=== PATIENT | female | born 2005 | race Caucasian/White ===

== ENCOUNTER 2025-02-08 14:18 | Outpatient (REF) | payer OTHER, SELFPAY ==
[2025-02-08 17:44] LABS: MANUAL DIFF FLAG NO
[2025-02-08 18:10] LABS: Alanine Aminotransferase 19 U/L (0-31); Albumin Level 4.6 g/dL (3.5-5.0); Alkaline Phosphatase 64 U/L (39-117); Anion Gap 12 (12-20); Aspartate Amino Transferase 29 U/L (5-31); Blood Urea Nitrogen 6 mg/dL (9-16); Calcium 9.2 mg/dL (8.4-10.2); Carbon Dioxide 26 mmol/L (22-29); Chloride 106 mmol/L (96-108); Cholesterol 177 mg/dL (<200); Estimated Glomerular Filt Rate > 60; HDL Cholesterol 59 mg/dL (>40); Iron 27 mcg/dL (30-160); Percent Iron Saturation 7 % (15-50); Potassium 3.8 mmol/L (3.3-5.1); Sodium 140 mmol/L (135-145); Total Iron Binding Capacity 382 mcg/dL (228-428); Total Protein 7.8 g/dL (6.5-8.0); Triglycerides 69 mg/dL (<150); Unsaturated Iron Binding 355 ug/dL
[2025-02-08 18:13] LABS: Hematocrit 38.4 % (37.0-47.0); Hemoglobin 11.3 g/dl (12.0-16.0); Imm Gran Abs Auto 0.02 X10*3/uL (0.00-0.03); Imm Gran Pct Auto 0.3 % (0.0-0.4); Lymphocytes Absolute Auto 1.4 X10*3/uL (1.2-4.9); Mean Corpuscular HGB Conc 29.4 g/dl (31.0-35.0); Mean Corpuscular Hemoglobin 22.1 pg (27.0-33.0); Mean Corpuscular Volume 75.1 fL (80.0-98.0); NRBC Abs Auto 0.000 X10*3/uL (0.0-0.012); NRBC Pct Auto 0.0 /100WBC (0.0-0.2); Platelet Count 470 X10*3/uL (160-400); Red Blood Count 5.11 X10*6/uL (4.20-5.50); White Blood Count 6.9 X10*3/uL (4.8-10.8)
[2025-02-08 18:26] LABS: Ferritin 6 ng/mL (10-122)
[2025-02-08 18:37] LABS: Folate 9.5 ng/mL (> or = 4.0); Vitamin B12 398 pg/mL (200-900)
== END 2025-02-08 14:19 | disposition home or self-care (01) ==
LOC: HO.WFDLDS 14:18
PROVIDERS: Visit Provider Internal Medicine
DX: Z00.00 Encounter for general adult medical examination without abnormal findings (principal); R35.89 Other polyuria; R53.83 Other fatigue; Z11.3 Encounter for screening for infections with a predominantly sexual mode of transmission; Z13.220 Encounter for screening for lipoid disorders; Z76.89 Persons encountering health services in other specified circumstances; Z86.2 Personal history of diseases of the blood and blood-forming organs and certain disorders involving the immune mechanism
CPT/HCPCS: 36415; 80053; 80061; 82607; 82728; 82746; 83036; 83540; 84443; 85025; 96127; 99385

== ENCOUNTER 2025-02-08 14:18 | Outpatient (AMB) | payer OTHER, SELFPAY ==
--- NOTE | 2025-02-08 14:20 | A.OFFPC_ITS ---
Vital Signs 02/08/25 14:25 Height 5 ft 8 in Weight 182 lb 6 oz BMI 27.7 BP 132/63 Blood Pressure Location Lt brachial Position Sitting Respiration 16 Pulse 90 Pulse Source Pulse Oximeter Temp 98.4 F Temp Source Oral Pulse Oximetry (%) 100 Oxygen Delivery Method Room Air Intake Visit Reasons: CPE Intake Note: patient her for CPE [employer] Officer Required: No Is last menstrual period known: Yes Last menstrual period: 02/01/25 Post menopausal: No Patient : No Allergies No Known Allergies Allergy (Verified 02/08/25 14:24) Tobacco use date assessed: 02/08/25 Dental Screening Dental Screen Date: 02/08/25 Did you have a dental visit in the last 12 months?: Yes Did you have a dental problem in the last 6 months where you did not have access to dental care?: No Was dental information given to patient?: Patient has dentist HPI HPI Comments History of Present Illness Details 19 year old female with a past medical h istory of mild anemia presenting to establish care/CPE. Previously seen in pediatrics Dr Raymond. Feeling tired/lack of motivation at [employer]se. Student. History of anemia. Would like iron checked. Says menses have been normal Sexually active-condoms Not following with gynecology ROS CONSTITUTIONAL: Denies weight loss, fever and chills. HEENT: Denies changes in vision and hearing. RESPIRATORY: Denies SOB and cough. CV: Denies palpitations and CP GI: Denies abdominal pain, nausea, vomiting and diarrhea. : Denies dysuria and urinary frequency. MSK: Denies new myalgia and joint pain. SKIN: Denies rash and pruritus. NEUROLOGICAL: Denies headache PSYCHIATRIC: Denies recent changes in mood. PHYSICAL EXAM: GENERAL: Alert and oriented x 3. NAD EYES: EOMI. Anicteric. HENT: Moist mucous membranes. No scleral icterus. No cervical lymphadenopathy. LUNGS: Clear to auscultation bilaterally. CARDIOVASCULAR: Regular rate and rhythm. No murmur. No JVD. ABDOMEN: Soft, non-tender +bs EXTREMITIES: No edema. Non-tender. SKIN: No rashes or lesions. Warm. NEUROLOGIC: No focal neurological deficits. CN II-XII grossly intact PSYCHIATRIC: Cooperative. Appropriate mood and affect [facility] Family History Father Alcohol abuse Social History Housing: House Patient Tobacco Use Status: Never used Tobacco e-Cigarette/Vaping Use: Never Used service: No Current occupational status: student Current occupational exposures/hazards: No Cognitive needs: No Hearing needs: No Vision needs: No Female Reproductive History Menstrual Date of last menstrual period: 02/01/25 Questionnaire PHQ-9 Over the last 2 weeks, how often have you been bothered by any of the following problems? 1. Little interest or pleasure in doing things: not at all 2. Feeling down, depressed, or hopeless: not at all 3. Trouble falling or staying asleep, or sleeping too much: not at all 4. Feeling tired or having little energy: several days 5. Poor appetite or overeating: not at all 6. Feeling bad about yourself - or that you are a failure or have let yourself or your family down: not at all 7. Trouble concentrating on things, such as reading the newspaper or watching television: not at all 8. Moving or speaking so slowly that other people could have noticed. Or the opposite - being so fidgety or restless that you have been moving around a lot more than usual: not at all 9. Thoughts that you would be better off or of hurting yourself in some way: not at all Total score: 1 Depression Screening Interpretation: Negative Depression Screening Done: Yes 60437 - PHQ-9 Billing: Yes Source: Developed by Drs. Daniel Valencia, Loly West, Vito Nash and colleagues, with an educational gabby from [employer]. Thrive Questionnaire Date Thrive assessed: 02/08/25 I am a: Patient What is your living situation today?: I have a steady place to live Within the past 12 months, did the food you bought not last and you didn't have the money to get more?: Never true Within the past 12 months, did you worry whether your food would run out before you got money to buy more?: Never true Do you have trouble paying for medicines?: No Do you have trouble getting transportation to medical appointments?: No Do you have trouble paying your heating and electricity bill?: No Do you have trouble taking care of your child, family member or friend?: No Do you have trouble with day-to-day activities such as bathing, preparing meals, shopping, managing finances, etc.?: No Are you currently unemployed and looking for a job?: No Are you interested in more education?: Yes Please select the resources that you would like help with: None Currently or been in a relationship where the following occur: No concerns reported THRIVE Score: 0 AUDIT C Alcohol Use Questionnaire (AUDIT-C) 1. How often do you have a drink containing alcohol?: Monthly or less 2. How many drinks containing alcohol do you have on a typical day when you are drinking?: 1 or 2 3. How often do you have six or more drinks on one occasion?: Never Total Score: 1 Score Reviewed/Action Taken: Yes MATILDE-7 AMB Questionnaire MATILDE-7 Date MATILDE - 7 assessed: 02/08/25 Feeling nervous, anxious, or on edge: 0 = Not at all Not being able to stop or control worryin = Several days Worrying too much about different things: 0 = Not at all Trouble relaxin = Not at all Being so restless that it is hard to sit still: 0 = Not at all Becoming easily annoyed or irritable: 0 = Not at all Feeling afraid as if something awful might happen: 0 = Not at all Total MATILDE-7 score (0-4 normal; 5-9 mild; 10-14 moderate; 15-21 severe): 1 Source: Developed by Drs. Daniel Valencia, Loly West, Vito Nash and colleagues, with an educational gabby from [employer]. MATILDE-7 Assessment Billing MATILDE-7 Assessment Tool: MATILDE-7 Assessment 02221 Physical exam (Primary Care) Vital Signs: Last Vital Signs Temp 98.4 F 02/08/25 14:25 Pulse 90 02/08/25 14:25 Resp 16 02/08/25 14:25 BP 132/63 02/08/25 14:25 Pulse Ox 100 02/08/25 14:25 Oxygen Delivery Method Room Air 02/08/25 14:25 BMI result Body Mass Index 27.7 Tobacco/Smoking Status: Tobacco use Status Tobacco use date assessed 02/08/25 02/08/25 14:29 Patient Tobacco Use Status Never used Tobacco 02/08/25 14:29 e-Cigarette/Vaping Use Never Used 02/08/25 14:29 PHQ-9: PHQ-9 Score PHQ-9: Total score 1 02/08/25 14:30 Depression Screening Interpretation: Negative Thrive Assessment: Date of Thrive Assessment Date Thrive assessed 02/08/25 02/08/25 14:30 Currently or been in a relationship where the following occur: No concerns reported Coding Level of Care Code New Pt Prev Care 18-39yr(40911 Diagnoses Physical exam Z00.00 History of anemia Z86.2 Additional Codes MATILDE-7 Assessment Billing - MATILDE-7 Assessment Tool: MATILDE-7 Assessment 54713 ([id number]) PHQ-9 - 13658 - PHQ-9 Billing: Yes ([id number]) Assessment & Plan Assessment & Plan (1) Physical exam: Code(s): Z00.00 - Encounter for general adult medical examination without abnormal findings (2) History of anemia: Code(s): Z86.2 - Personal history of diseases of the blood and blood-forming organs and certain disorders involving the immune mechanism Category: Medical Plan 19 year old presenting to [facility] Past medical, surgical, social reviewed Preventive measures for age discussed. Declines flu vaccine. Labs STI testing ordered Unknown last Td. Records requested Sluggish fatigue-h/o mild anemia Follow up in one year for CPE or sooner prn Orders: Orders Comprehensive Met. Panel 02/08/25 R35.89 - Other polyuria, R53.83 - Other fatigue, Z11.3 - Encounter for screening for infections with a predominantly sexual mode of transmission, Z13.220 - Encounter for screening for lipoid disorders, Z76.89 - Persons encountering health services in other specified circumstances, Z86.2 - Personal history of diseases of the blood and blood- forming organs and certain disorders involving the immune mechanism TSH reflex Free T4 02/08/25 R35.89 - Other polyuria, R53.83 - Other fatigue, Z11.3 - Encounter for screening for infections with a predominantly sexual mode of transmission, Z13.220 - Encounter for screening for lipoid disorders, Z76.89 - Persons encountering health services in other specified circumstances, Z86.2 - Personal history of diseases of the blood and blood-forming organs and certain disorders involving the immune mechanism Vitamin B12 and Folate 02/08/25 R35.89 - Other polyuria, R53.83 - Other fatigue, Z11.3 - Encounter for screening for infections with a predominantly sexual mode of transmission, Z13.220 - Encounter for screening for lipoid disorders, Z76.89 - Persons encountering health services in other specified circumstances, Z86.2 - Personal history of diseases of the blood and blood- forming organs and certain disorders involving the immune mechanism CT NG by PCR Urine 02/08/25 R35.89 - Other polyuria, R53.83 - Other fatigue, Z11.3 - Encounter for screening for infections with a predominantly sexual mode of transmission, Z13.220 - Encounter for screening for lipoid disorders, Z76.89 - Persons encountering health services in other specified circumstances, Z86.2 - Personal history of diseases of the blood and blood-forming organs and certain disorders involving the immune mechanism Complete Blood Count Auto Diff 02/08/25 R35.89 - Other polyuria, R53.83 - Other fatigue, Z11.3 - Encounter for screening for infections with a predominantly sexual mode of transmission, Z13.220 - Encounter for screening for lipoid disorders, Z76.89 - Persons encountering health services in other specified circumstances, Z86.2 - Personal history of diseases of the blood and blood- forming organs and certain disorders involving the immune mechanism Lipid Panel 02/08/25 R35.89 - Other polyuria, R53.83 - Other fatigue, Z11.3 - Encounter for screening for infections with a predominantly sexual mode of transmission, Z13.220 - Encounter for screening for lipoid disorders, Z76.89 - Persons encountering health services in other specified circumstances, Z86.2 - Personal history of diseases of the blood and blood-forming organs and certain disorders involving the immune mechanism IRON PROFILE 02/08/25 R35.89 - Other polyuria, R53.83 - Other fatigue, Z11.3 - Encounter for screening for infections with a predominantly sexual mode of transmission, Z13.220 - Encounter for screening for lipoid disorders, Z76.89 - Persons encountering health services in other specified circumstances, Z86.2 - Personal history of diseases of the blood and blood-forming organs and certain disorders involving the immune mechanism Ferritin 02/08/25 R35.89 - Other polyuria, R53.83 - Other fatigue, Z11.3 - Encounter for screening for infections with a predominantly sexual mode of transmission, Z13.220 - Encounter for screening for lipoid disorders, Z76.89 - Persons encountering health services in other specified circumstances, Z86.2 - Personal history of diseases of the blood and blood-forming organs and certain disorders involving the immune mechanism Hemoglobin A1c 02/08/25 R35.89 - Other polyuria, R53.83 - Other fatigue, Z11.3 - Encounter for screening for infections with a predominantly sexual mode of transmission, Z13.220 - Encounter for screening for lipoid disorders, Z76.89 - Persons encountering health services in other specified circumstances, Z86.2 - Personal history of diseases of the blood and blood-forming organs and certain disorders involving the immune mechanism
[2025-02-08 14:25] VITALS: BP 132/63; PULSE 90; RESP 16; TEMP 36.9; O2SAT 100; BMI 27.7
--- OUTSIDE RECORDS SUMMARY | 2025-02-08 18:03 | XMS_ITS | Clinical Summary ---
Author Organization [facility] Address [address] [place] [id number] Phone Care Team Providers Care Spreader Box Operator Name Role Phone Daniel Raymond MD Primary Care Provider [phone] Allergies No known active allergies Medications No known medications Active Problems Problem Noted Date Diagnosed Date Dysmenorrhea in adolescent 06/26/2022 Anemia 07/03/2020 Overview (06/26/2022): Hb 10.5 on 07/03/20 02/01/21 Hb 12.3, iron normal, but %iron saturation low at 12% 07/02 12.3 Assessment & Plan (07/03/2020 11:09 PM EDT): Hb is low today at 10.5. Mom is diagnosed with iron deficiency anemia. Patient is not a big meat eater, only has occl chicken, no red meat. Recommend increasing leafy green vegetables in her diet such as spinach and to have with something with vitamin C and not calcium. Hand out given on foods with high iron and vitamin C. To not have milk or dairy with high iron foods. Will start patient on iron tablet po q day with breakfast. Warned that it could cause darker color to stool and could cause constipation. To return to clinic in one month to recheck Hb. If still low at that time then would send her to the lab to check cbc with diff and iron. Upper back pain 07/03/2020 Assessment & Plan (07/03/2020 11:30 PM EDT): Nontender on exam. Gave her handout with upper back pain exercises to do at home. To call if sxs worsen/no improvement. If not improving then may need to consider physical therapy evaluation. If symptoms worsening to call/RTC. Can take ibuprofen if needed for pain. Can use heat or ice if needed for pain, whichever feels better. Resolved Problems Problem Noted Date Diagnosed Date Resolved Date Curvature of spine 07/03/2020 3 Assessment & Plan (07/03/2020 11:17 PM EDT): Minimal difference. Reassurance at this time. Immunizations Immunization Administration Dates Next Due DTaP 06/07/2010,12/27/2005 DTaP / Hep B / IPV 05/07/2005,02/18/2005, 005 Hep A, ped/adol 10/07/2008,12/27/2005 Hib (PRP-T) 12/27/2005, 6,02/18/2005,11/26 IPV 06/07/2010 Influenza, injectable, triva lent, preservative free 12/27/2005 MMR 10/07/2008,10/07/2005 Meningococcal Conj (Menactra) MCV4P 09/25/2017 No Vaccine Administered 05/16/2016 Pneumococcal Conjugate 10/07/2005,2005,02/18/2005,11/26 Tdap 05/16/2016 Varicella 10/07/2008,10/07/2005 Family History Medical History Relation Name Comments No Known Problems Brothnamita Montero No Known Problems Father Patrick Heart disease Maternal Grandfather No Known Problems Maternal Grandmother No Known Problems Mother Johana No Known Problems Paternal Grandfather Relation Name Status Comments Brother Winston Alive Father Patrick Alive healthy age: 40 Maternal Grandfather heart d isease, 6 days after covid shot Maternal Grandmother Alive healthy Mother Johana Alive healthy age: 39 Paternal Grandfather Alive healthy Paternal Grandmother Alive healthy Social History Tobacco Use Types Packs/Day Years Used Date Smoking Tobacco: Never Assessed Hunger/Food Answer Date Recorded In the last 12 months, did y ou or your family ever eat less than you felt you should because there wasn't enough money for food? No 06/26/2022 Stable Housing Answer Date Recorded Are you worried that in the next 2 months you may not have stable housing? No 06/26/2022 Transportation Concerns Answer Date Rec orded In the last 12 months, have you or your family ever had to go without healthcare because you didn't have a way to get there? No 06/26/2022 Hazards in Home Answer Date Recorded Think about the place you li ve. Do you have problems with any of the following? Pests (mice or roaches), mold, no/not working smoke detectors, water leaks, no window guards. No 2022 Financing Utilities Answer Date Recorde d In the last 12 months, has t he electric, gas, oil, or water company threatened to shut off your services in your home? No 06/26/2022 Safety at Home Answer Date Recorded Are you or your family worried about feeling saf e in your home? No 06/26/2022 Outside Support Answer Date Recorded Do you feel that you need mo re support from other people or programs to help you care for yourself or your family? No 06/26/2022 Understanding Health Concerns Answer Da te Recorded Do you need help understandi ng your or your child's healthcare needs (diagnosis, medications, plan, etc.)? No 06/26/2022 Financing Health Concerns Answer Date R ecorded In the last 12 months, was t here a time when your child needed to see a doctor or get medications or supplies but could not because of cost? No 06/26/2022 Missing School or Work Answer Date Bryson rded Did you or your child miss s chool or work because of a health problem that could have been avoided? No 06/26/2022 Comments No Sex and Gender Information Value Date Recorded Sex Assigned at Female 07/03/2020 2:16 PM EDT Legal Sex Female 6:10 PM EDT Gender Identity Female 07/03/2020 2:16 PM EDT Sexual Orientation Straight 07/03/2020 2: 16 PM EDT Last Filed Vital Signs Vital Sign Reading Time Taken Comments Blood Pressure 112/64 06/26/2022 3:40 PM EDT Pulse - - Temperature 36.4 C (97.6 F) 10/27/2013 12:00 AM EDT Respiratory Rate - - Oxygen Saturation - - Inhaled Oxygen Concentration - - Weight 67.9 kg (149 lb 12.8 oz) 06/26/2022 3:40 PM EDT Height 170.2 cm (5' 7 ) 06/26/2022 3:40 PM EDT Body Mass Index 23.46 06/26/2022 3:40 PM EDT Plan of Treatment Health Maintenance Due Date Last Done Comments HPV Vaccines (1 - 3-dose series) 09/25/2019 Men B Vaccine (1 of 2 - Standard) 2020 Meningococcal Vaccine (2 - 2 -dose series) 2020 09/25/2017 Chlamydia and Gonorrhea Screening 02/11/2024 Influenza Vaccines (#1) 2024 12/27/2005 COVID-19 Vaccine (1 - 2024-2 6 season) 2024 DTaP,Tdap,and Td Vaccines (7 - Td or Tdap) 05/16/2026 05/16/2016, 06/07/2010, 12/27/2005, Additional history exists Hepatitis B Vaccines Completed 05/07/2005, 02/18/2005, 2004 Pneumococcal Vaccine Completed 10/07/2005, 05/07/2005, 02/18/2005, Additional history exists HIB Vaccines Completed 12/27/2005, 12/11, 05/07/2005, Additional history exists Hepatitis A Vaccines Completed 10/07/2008, 12/28/19 MMR Vaccines Completed 10/07/2008, 10/07/2005 Varicella Vaccines Completed 10/07/2008, 10/07/2005 IPV Vaccines Completed 06/07/2010, 04/11, 02/18/2005, Additional history exists Insurance [facility] Care Teams Spreader Box Operator Relationship Specialty Start Date End Date Daniel Raymond MD [address] [place] [address] PCP - General 06/18/17
--- OUTSIDE RECORDS SUMMARY | 2025-02-08 18:03 | XMS_ITS | Encounter Summary ---
Author Organization [facility] Address [address] [place] [id number] Phone Care Team Providers Care Electric Transfer Operator Name Role Phone Daniel Raymond MD Primary Care Provider [phone] Encounter Details Date Type Department Care Team (Late st Contact Info) Description 02/24/2009 [place]ation [facility] [place] [address] [place], [place] [id number] Family Medicine, Physician [address], [place] [id number] Social History Tobacco Use Types Packs/Day Years Used Date Smoking Tobacco: Never Assessed Comments Unknown Sex and Gender Information Value Date Recorded Sex Assigned at Female 07/03/2020 2:16 PM EDT Legal Sex Female 6:10 PM EDT Gender Identity Female 07/03/2020 2:16 PM EDT Sexual Orientation Straight 07/03/2020 2: 16 PM EDT documented as of this encounter Plan of Treatment Not on file documented as of this encounter Visit Diagnoses Not on filedocumented in this encounter Care Teams Electric Transfer Operator Relationship Specialty Start Date End Date Daniel Raymond MD [address] [place] [address] PCP - General 06/18/17 documented as of this encounter
--- OUTSIDE RECORDS SUMMARY | 2025-02-08 18:03 | XMS_ITS | Encounter Summary ---
Author Organization [facility] Address [address] [place] [phone] Phone Care Team Providers Care Die Engraver Name Role Phone Daniel Raymond MD Primary Care Provider [phone] Encounter Details Date Type Department Care Team (Late st Contact Info) Description 06/29/2017 Conversion Encounter [facility] [address] [place] [address] Daniel Raymond MD [address] [place] [address] Social History Tobacco Use Types Packs/Day Years [...] on filedocumented in this encounter Care Teams Die Engraver Relationship Specialty Start Date End Date Daniel Raymond MD [address] [place] [address] PCP - General 06/18/17 documented as of this encounter
== END 2025-02-08 14:43 | disposition home or self-care (01) ==
LOC: HO.HMCFM 14:19
PROVIDERS: PCP Internal Medicine; Visit Provider Internal Medicine
DX: Z00.00 Encounter for general adult medical examination without abnormal findings (principal); Z86.2 Personal history of diseases of the blood and blood-forming organs and certain disorders involving the immune mechanism